=== PATIENT | male | born 1985 | race Caucasian/White ===

== ENCOUNTER 2022-07-04 08:05 | Emergency (ER) | payer BC ==
[~2022-07-04] VITALS: Ht 185.4 cm; Wt 88.6 kg
[2022-07-04] MEDS ORDERED: FentaNYL CITRATE PF 100 MCG/2 ML VIAL IVP ONE (08:15)
[2022-07-04] MEDS ORDERED: MIDAZOLAM HCL 2 MG/2 ML VIAL IVP ONE (08:15)
[2022-07-04] MEDS ORDERED: NALOXONE HCL 1 MG/ML 2 ML SYRINGE ONE (08:21)
[2022-07-04] MEDS ORDERED: FLUMAZENIL 0.1 MG/ML 5 ML VIAL IVP ONE (08:21)
[2022-07-04 09:00] VITALS: BP 121/76
== END 2022-07-04 09:48 | disposition home or self-care (01) ==
LOC: EMS 08:05
DX: S43.004A Unspecified dislocation of right shoulder joint, initial encounter (principal); X58.XXXA Exposure to other specified factors, initial encounter; Y93.89 Activity, other specified; Y92.89 Other specified places as the place of occurrence of the external cause; Y99.8 Other external cause status
CPT/HCPCS: 99285; 23650; 73030; 99152; 99153; J3010; J2250; J2310; J3490